=== PATIENT | male | born 1955 | race Caucasian/White ===

== ENCOUNTER → 2018-03-22 | Outpatient (CLI) | payer OTHER ==
[~2018-03-22] MED LIST: ACETAMINOPHEN325 M1; ANTISEIZURE MED; ASPIRIN EC325 M1 PO; CARDIZEM CD 18180 M3 PO; FLONASE16 GM NASAL; LORAZEPAM 0.50.5 MG PO; MOTION RELIEF25 MG PO; NORVASC 5 MG TAB5 MG PO; SEIZURE MEDICATION; VITAMINS
[2018-03-22 10:24] LABS: CHOLESTEROL 226 mg/dL (<200); HDL CHOLESTEROL 51 mg/dL (>40); LDL CHOLESTEROL 162 mg/dL (<100); TC:HDL 4.4 Ratio (Not establshd); TRIGLYCERIDE 66 mg/dL (<150); VLDL 13 mg/dL (<40)
[2018-03-22 10:26] LABS: SERUM ASSESSMENT Clear
[2018-03-22 15:08] LABS: TESTOSTERONE 860 ng/dL (264-916)
[2018-03-24 21:06] LABS: FREE TESTOSTERONE 7.6 pg/mL (6.6-18.1)
== END ==
LOC: M.LAB 09:50
PROVIDERS: Internal Medicine Cardiovascular Disease
DX: E78.00 Pure hypercholesterolemia, unspecified (principal); R23.2 Flushing